=== PATIENT | female | born 1940 | race Asian ===

== ENCOUNTER → 2024-03-24 11:05 | Outpatient (REF) | payer MEDICARE, OTHER, SELFPAY ==
[2024-03-24 16:36] LABS: ALT (SGPT) 15 U/L (0-35); AST (SGOT) 26 U/L (14-36); Albumin 4.6 g/dl (3.5-5.0); Alkaline Phosphatase 68 U/L (38-126); Blood Urea Nitrogen 19 mg/dl (7-17); Calcium 9.4 mg/dl (8.4-10.2); Carbon Dioxide 27 mmol/L (22-30); Chloride 104 mmol/L (98-107); Glucose 94 mg/dl (70-99); HDL Cholesterol 103 mg/dl; LDL Cholesterol, Calculated 133 mg/dl; Potassium 4.5 mmol/L (3.5-5.1); Sodium 144 mmol/L (135-145); Total Bilirubin 0.6 mg/dl (0.2-1.3); Total Cholesterol 254 mg/dl (50-199); Total Protein 7.7 g/dl (6.3-8.2); Triglyceride 92 mg/dl (10-149); Very Low Density Lipoprotein 18 mg/dl (0-30); eGFR > 60.00
== END ==
LOC: HWLAB 11:05
PROVIDERS: ATTENDING PHYSICIAN Internal Medicine
DX: E78.5 Hyperlipidemia, unspecified (principal)
CPT/HCPCS: 36415; 80053; 80061

== ENCOUNTER → 2024-04-09 10:00 | Outpatient (REF) | payer MEDICARE, OTHER, SELFPAY | LOC: HWRAD 10:00 | PROVIDERS: ATTENDING PHYSICIAN Internal Medicine | DX: M81.0 Age-related osteoporosis without current pathological fracture (principal) | CPT/HCPCS: 77080 ==

== ENCOUNTER → 2024-06-09 07:45 | Outpatient (REF) | payer MEDICARE, OTHER, SELFPAY ==
[2024-06-09 10:12] LABS: Hematocrit 38.9 % (37.0-47.0); Hemoglobin 12.5 g/dL (12.0-16.0); Mean Corp Hgb Conc. 32.1 g/dL (33.0-37.0); Mean Corpuscular Hgb 23.9 pg (27.0-31.0); Mean Corpuscular Volume 74.5 fL (81.0-99.0); Mean Platelet Volume 10.6 fL (7.4-10.4); Platelet Count 351 10^3/uL (130-400); Red Blood Cell Count 5.22 10^6/uL (4.20-5.40); Red Cell Dist. Width 14.8 % (11.5-14.5); White Blood Cell Count 10.4 10^3/uL (4.8-10.8)
[2024-06-09 11:32] LABS: Absolute Neutrophils -Man Diff 6.7 10^3/uL (1.4-6.5); Band Neutrophils 8 % (0-3); Lymphocytes 17 % (20-51); Monocytes 11 % (2-9); Segmented Neutrophils 57 % (42-75)
[2024-06-09 11:33] LABS: Atypical Lymphocytes 5 %; Eosinophils 2 % (0-6); Normal RBC Morphology Yes; Platelets Checked Yes; Total Cells Counted 100
== END ==
LOC: HWLAB 07:45
PROVIDERS: ATTENDING PHYSICIAN Internal Medicine
DX: J18.9 Pneumonia, unspecified organism (principal)
CPT/HCPCS: 36415; 85025

== ENCOUNTER 2025-01-14 06:15 | Emergency (ER) | payer MEDICARE, OTHER, SELFPAY ==
[2025-01-14 06:27] VITALS: BP 118/65
--- NOTE | 2025-01-14 07:26 | ED.GENMED ---
History of Present Illness
<Chantel Posadas PA-C - Last Filed: 01/14/25 17:37>
General
Chief Complaint: Headache
Source: patient
Exam Limitations: none
Time Seen by Provider: 01/14/25 07:08
Nursing documentation reviewed up to this point in time: agreed with
History of Present Illness
History of Present Illness:
Patient is an 84-year-old female with history dementia who presents to the emergency department for evaluation of headache X 3 days. She describes the headache as gradual in onset however worsening over the past few days. She states the headache
is constant in nature and describes both a throbbing pain in her left posterior head as well as pain to her scalp in the similar area. She states the pain is exacerbated when she pulls her hair in the affected area.
Patient states occasionally she gets blurry vision in her left eye however right now her vision is normal.
She denies any fever, chills, neck pain. She denies any nausea, vomiting, diplopia, ataxia, dysarthria, weakness. No recent falls or trauma.
Her feels that she has been more confused/forgetful over the past few days. She has been sleeping more than she typically does.
Of note�they state that patient did have MRI imaging about 1 year ago and it is time to get into a clinical trial for dementia where she was told she has a few 'nodules 'on her brain.
Past History
<Chantel Posadas PA-C - Last Filed: 01/14/25 17:37>
Past History
ED Past Medical History: Other (mycobacterial infection) and Other (shingles)
ED Past Surgical History: Cholecystectomy and Other (lumpectomy, mycomectomy)
Social History
Tobacco: Non-smoker
Alcohol: None
Drug: None
Personal: Single
Living: alone
Review of Systems
<Chantel Posadas PA-C - Last Filed: 01/14/25 17:37>
Review of Systems
Allergies reviewed?: Yes
All Other Systems: ROS reviewed and negative except as documented in HPI and ROS
Phy Exam
<Chantel Posadas PA-C - Last Filed: 01/14/25 17:37>
Physical Exam
Physical Exam:
Vitals: Patient's vital signs are stable. Afebrile
General: Patient is well appearing, no acute distress. Nontoxic appearing
Skin: Warm and dry, no rashes or lesions
Head: Normocephalic, atraumatic. Some reproducible tenderness in left parietal scalp without any evidence of rash, ecchymoses, erythema. No temporal tenderness.
Eyes: Sclera nonicteric. Pupils equal round reactive light bilaterally. EOMs intact. No nystagmus.
Throat: Protecting airway
Neck: Palpable tender lymphadenopathy posterior cervical chain on right side. Normal ROM, no cervical spine tenderness, no meningismus
Cardiac: Regular rate and rhythm, no murmurs.
Pulm: Normal respiratory effort, no wheezes, rales, rhonchi heard on exam
Abdomen: No abdominal tenderness.
Extremities: No evidence of cyanosis or edema. Strength 5/5 in bilateral upper and lower extremities.
Neuro: AAOx3. CN II-XII grossly intact. No facial droop or asymmetry. Fluid speech and steady gait. Sensation intact. No focal neurologic deficits.
Psychiatric: Normal affect.
Course
<Chantel Posadas PA-C - Last Filed: 01/14/25 17:37>
Orders/Labs/Results
Orders:
Orders
01/14/25 07:18
CT Head W/o Iv Contrast Urgent
Comment:
Reason For Exam: left parietal headache, confusion
0.9% Sodium Chloride 500 ml [Nss] 500 ml IV BOLUS
Acetaminophen [Tylenol] 650 mg PO NOW STA
01/14/25 07:53
C-Reactive Protein Urgent
COVID-19 Antigen Urgent
Source: Nasal Swab
Complete Blood Count/With Diff Urgent
Comprehensive Metabolic Panel Urgent
ESR [Erythrocyte Sed Rate] Urgent
Monotest Urgent
Comment: ADD
01/14/25 08:37
Add On- LAB Urgent
Tests Added?: monospot
01/14/25 08:59
Ketorolac [Toradol] 15 mg IV NOW STA
01/14/25 12:51
Prednisone [Deltasone] 60 mg PO NOW STA
01/14/25 13:20
Add On- LAB Urgent
Tests Added?: CRP
Abnormal Lab Results
01/14/25
07:53
MCV 73.7 L fL
(81.0-99.0)
MCH 24.2 L pg
(27.0-31.0)
MCHC 32.8 L g/dL
(33.0-37.0)
RDW 15.4 H %
(11.5-14.5)
Lymphocytes % 18.1 L %
(20.5-51.1)
ESR 74 H mm/hour
(0-20)
BUN 26 H mg/dl
(7-17)
Glucose 119 H mg/dl
(70-99)
AST 67 H U/L
(14-36)
ALT 58 H U/L
(0-35)
C-Reactive Protein 32.00 H mg/L
(0.0-10.00)
01/14/25 07:53
01/14/25 07:53
Vital Signs
Initial and Last Documented VS:
Initial Vital Signs
Temp Pulse Resp BP Pulse Ox
97.4 F 84 16 118/65 95
01/14/25 06:27 01/14/25 06:27 01/14/25 06:27 01/14/25 06:27 01/14/25 06:27
Last Documented Vital Signs
Temp Pulse Resp BP Pulse Ox
97.4 F 84 16 121/62 94
01/14/25 06:27 01/14/25 06:27 01/14/25 06:27 01/14/25 11:00 01/14/25 12:02
<Keven Bailey Forest, DO - Last Filed: 01/14/25 12:42>
Orders/Labs/Results
Orders:
Orders
01/14/25 07:18
CT Head W/o Iv Contrast Urgent
Comment:
Reason For Exam: left parietal headache, confusion
0.9% Sodium Chloride 500 ml [Nss] 500 ml IV BOLUS
Acetaminophen [Tylenol] 650 mg PO NOW STA
01/14/25 07:53
C-Reactive Protein Urgent
COVID-19 Antigen Urgent
Source: Nasal Swab
Complete Blood Count/With Diff Urgent
Comprehensive Metabolic Panel Urgent
ESR [Erythrocyte Sed Rate] Urgent
Monotest Urgent
Comment: ADD
01/14/25 08:37
Add On- LAB Urgent
Tests Added?: monospot
01/14/25 08:59
Ketorolac [Toradol] 15 mg IV NOW STA
01/14/25 12:51
Prednisone [Deltasone] 60 mg PO NOW STA
01/14/25 13:20
Add On- LAB Urgent
Tests Added?: CRP
Abnormal Lab Results
01/14/25
07:53
MCV 73.7 L fL
(81.0-99.0)
MCH 24.2 L pg
(27.0-31.0)
MCHC 32.8 L g/dL
(33.0-37.0)
RDW 15.4 H %
(11.5-14.5)
Lymphocytes % 18.1 L %
(20.5-51.1)
ESR 74 H mm/hour
(0-20)
BUN 26 H mg/dl
(7-17)
Glucose 119 H mg/dl
(70-99)
AST 67 H U/L
(14-36)
ALT 58 H U/L
(0-35)
C-Reactive Protein 32.00 H mg/L
(0.0-10.00)
01/14/25 07:53
01/14/25 07:53
Vital Signs
Initial and Last Documented VS:
Initial Vital Signs
Temp Pulse Resp BP Pulse Ox
97.4 F 84 16 118/65 95
01/14/25 06:27 01/14/25 06:27 01/14/25 06:27 01/14/25 06:27 01/14/25 06:27
Last Documented Vital Signs
Temp Pulse Resp BP Pulse Ox
97.4 F 84 16 121/62 94
01/14/25 06:27 01/14/25 06:27 01/14/25 06:27 01/14/25 11:00 01/14/25 12:02
<Chantel Posadas PA-C - Last Filed: 01/14/25 17:37>
MDM/Problems Addressed
Differential Diagnosis Includes:
Not limited to: Viral illness, migraine headache, tension headache, occipital neuralgia, herpes zoster, giant cell arteritis, intracerebral hemorrhage, mass, etc.
MDM/Problems Addressed:
84-year-old female presenting with 3 days of left parietal lobe headache. She does report intermittent blurriness of left eye however vision clear currently. No other neurologic symptoms. No recent trauma or falls. No oral anticoagulation.
Patient hemodynamically stable on arrival. On exam�patient well-appearing, in no apparent distress. She is neurologically intact without any focal deficits. She has normal cerebellar exam and equal strength in bilateral upper/lower extremities.
She has no tenderness overlying temporal artery or jaw claudication. Cardio/pulmonary assessment unremarkable. No meningeal signs.
Differential broad. Possible viral illness versus dehydration. Lower suspicion for migraine headache given age and no history of similar. No evidence of rash to suggest zoster. Symptoms inconsistent with occipital neuralgia. Other consideration
would be giant cell arteritis.
ED plan, labs, viral studies, head CT. Will treat symptoms and reassess.
Update: CBC without clinically significant abnormalities. Chemistry reveals mild transaminitis, nonspecific. Viral studies negative. Head CT without acute findings. Inflammatory marker, ESR elevated to 74. This would raise concern for an
inflammatory process such as giant cell arteritis. However�patient has no temporal artery tenderness and no jaw claudication symptoms. Her symptoms did improve significantly following medications. Given age, elevated inflammatory marker�Case was
discussed with vascular surgery as well as rheumatology. Plan will be to initiate oral steroids and schedule prompt follow-up with rheumatology outpatient. Will add on CRP per rheumatology. Plan for possible temporal artery biopsy outpatient.y
strict return precautions discussed. Patient and patient's family comfortable with plan. Patient discharged in stable condition. Patient seen with attending physician.
Chronic conditions affecting care:
Dementia
Acute Exacerbation and/or Progression of Chronic Illness:
N/A
<Chantel Posadas PA-C - Last Filed: 01/14/25 17:37>
*Radiology
Radiology exam reviewed: radiology read reviewed
*Pulse Oximetry
SaO2: 95
Oxygen Mode of Delivery: Room air
Patient hypoxic: no
*EKG
Interpreted by ED Provider?: NA
*Food Concession Manager Interpretation
Rate: Food Concession Manager- N/A
*Critical Care Note
Total Time (30-74mins, 75-104mins- exclusive of procedures): Not Applicable
<Chantel Posadas PA-C - Last Filed: 01/14/25 17:37>
Patient Management
Discussion with other providers: Wet Mixer (Case discussed with vascular surgery and rheumatology)
ED Attending Note
<Chantel Posadas PA-C - Last Filed: 01/14/25 17:37>
-
Portions of this chart may have been created with voice recognition software.� Occasional wrong word or��sound alike� substitutions may have occurred due to the inherent limitations of voice recognition software.
<Keven Bailey [place], DO - Last Filed: 01/14/25 12:42>
ED Attending Note
Patient seen and examined by attending physician: Yes
I performed the substantive portion of visit, reviewed & personally made and approve the management plan that is documented in note by myself or MULU.: Yes
ED Attending Note:
I evaluated the patient at bedside. The patient points to pain in the posterolateral aspect of the scalp. She feels as if there is something inside. CT imaging shows no acute abnormality. The patient did have a sed rate that was elevated however
I have extremely low suspicion for giant cell arteritis given the location of the pain and absence of pain with chewing food and absence of any tenderness in the left temporal region. She was given Tylenol and Toradol and now feels significantly
improved on reassessment.
Discharge Plan
Departure
Patient Disposition: Home (Routine Discharge)
Date of Disposition: 01/14/25
Time of Disposition: 12:51
Patient with high blood pressure during this ER visit?: No
Condition: Good
Discharge Problem:
Headache
Instructions: Headache, Adult (DC)
Prescriptions:
New
prednisone 20 mg tablet
60 mg PO DAILY 14 Days Qty: 42 0RF
No Action
cyanocobalamin (vitamin B-12) 1,000 MCG tablet
1,000 mcg PO DAILY
calcium carbonate [Antacid (calcium carbonate)] 1 TABLET tablet,chewable
2 tab PO Q4HPRN PRN (Reason: acid reflux)
ibuprofen 200 MG tablet
200 mg PO Q6HPRN PRN (Reason: mild pain)
multivitamin with minerals [Hair,Skin and Nails] 1 EACH tablet
1 ea PO DAILY
B-complex with vitamin C 1 CAPLET tablet
1 cap PO DAILY
lysine HCl 500 MG tablet
500 mg PO DAILY
multivitamin with folic acid [Tab-A-Skye] 1 TABLET tablet
1 tab PO DAILY
calcium carb-mag ox-zinc sulf 1 EACH tablet
1 ea PO DAILY
azithromycin [Zithromax] 500 MG tablet
500 mg PO DAILY Qty: 5 0RF
cefpodoxime [Vantin] 100 MG tablet
100 mg PO BID Qty: 14 0RF
Referrals:
Zaira Taveras MD [Non-Admitting Privileges, Neurology] - As needed
Keyla Monroe MD [Family Provider, Internal Medicine]
Shantell Mendoza MD [Active, Rheumatology] - Next open appointment
Activity Restrictions/Additional Instructions:
RETURN TO THE EMERGENCY DEPARTMENT ANY SEVERE, INTRACTABLE HEADACHE, CHANGES IN MENTAL STATUS, VOMITING, VISUAL CHANGES, PERSISTENT DIZZINESS, NUMBNESS/TINGLING OR WEAKNESS IN EXTREMITIES, WORSENING OF CURRENT SYMPTOMS, OR ANY OTHER CONCERNS
- As discussed�one of your inflammatory markers was elevated in the emergency department. Your liver function tests were also mildly elevated.
- A prescription for oral steroids has been sent to your pharmacy. Please take this once a day until you are seen by rheumatology.
- Continue to stay well-hydrated and take Tylenol and/or Motrin as needed for pain.
- Follow-up with rheumatology for further evaluation/management. Please call their office later today to schedule an appointment. If symptoms persist/worsen�you may also need to be seen by a neurologist and have further imaging of your brain
Monitor your symptoms closely and return to the emergency department with any acute worsening/new symptoms or any other concerns
Interventions
Interventions:
*Risk Screen - Suicide Last Done: 01/14/25 06:27
*General Assessment Last Done: 01/14/25 08:02
*Neglect/Abuse Screening Last Done: 01/14/25 06:27
*ED- Fall Risk Assessment Last Done: 01/14/25 06:27
*ED COVID-19 Vaccine History Last Done: 01/14/25 06:27
*Nursing Disposition Last Done: 01/14/25 13:05
ED- Neurological Assessment Last Done: 01/14/25 08:02
Discharge Date and Time
Discharge Date/Time: 01/14/25 13:05
Print Language: INDONESIAN
[2025-01-14] MEDS: TYLENOL 650 MG PO (07:41)
[2025-01-14] MEDS: NSS 500 IV (07:53)
[2025-01-14 07:56] VITALS: BP 133/69
[2025-01-14 08:00] VITALS: BP 97/66
[2025-01-14 08:09] LABS: Hematocrit 37.8 % (37.0-47.0); Hemoglobin 12.4 g/dL (12.0-16.0); Mean Corp Hgb Conc. 32.8 g/dL (33.0-37.0); Mean Corpuscular Volume 73.7 fL (81.0-99.0); Nucleated Red Blood Cells % 0 %; Platelet Count 260 10^3/uL (130-400); Red Cell Dist. Width 15.4 % (11.5-14.5)
[2025-01-14 08:19] LABS: COVID-19 Antigen Negative (Negative)
[2025-01-14 08:33] LABS: ALT (SGPT) 58 U/L (0-35); AST (SGOT) 67 U/L (14-36); Albumin 4.2 g/dl (3.5-5.0); Alkaline Phosphatase 125 U/L (38-126); Blood Urea Nitrogen 26 mg/dl (7-17); Calcium 8.9 mg/dl (8.4-10.2); Carbon Dioxide 26 mmol/L (22-30); Chloride 106 mmol/L (98-107); Glucose 119 mg/dl (70-99); Potassium 4.5 mmol/L (3.5-5.1); Sodium 139 mmol/L (135-145); Total Protein 7.5 g/dl (6.3-8.2); eGFR > 60.00
[2025-01-14] MEDS: TORADOL 15 MG IV (09:15)
[2025-01-14 09:17] VITALS: BP 132/37
[2025-01-14 10:00] VITALS: BP 123/58
[2025-01-14 11:00] VITALS: BP 121/62
[2025-01-14] MEDS: DELTASONE 60 MG PO (13:03)
[2025-01-14 14:49] LABS: C-Reactive Protein 32.00 mg/L (0.0-10.00)
== END 2025-01-14 13:05 | disposition home or self-care (01) ==
LOC: EMR 06:15
PROVIDERS: Physician Assistant; EMERGENCY PHYSICIAN Emergency Medicine; FAMILY PHYSICIAN Internal Medicine
DX: R51.9 Headache, unspecified (principal); F03.90 Unspecified dementia, unspecified severity, without behavioral disturbance, psychotic disturbance, mood disturbance, and anxiety; Z90.49 Acquired absence of other specified parts of digestive tract
CPT/HCPCS: 99284; 96374; 96361; 70450; 80053; 85025; 85652; 86140; 86308; 87811

== ENCOUNTER → 2025-01-14 13:17 | Outpatient (REF) | payer MEDICARE, OTHER, SELFPAY ==
[2025-01-14 14:06] LABS: Hematocrit 37.1 % (37.0-47.0); Hemoglobin 12.2 g/dL (12.0-16.0); Mean Corp Hgb Conc. 32.9 g/dL (33.0-37.0); Mean Corpuscular Volume 73.6 fL (81.0-99.0); Nucleated Red Blood Cells % 0 %; Platelet Count 256 10^3/uL (130-400); Red Cell Dist. Width 15.5 % (11.5-14.5)
[2025-01-14 14:18] LABS: INR 1.04; PT 13.9 Sec (11.4-14.6)
[2025-01-14 14:42] LABS: ALT (SGPT) 56 U/L (0-35); AST (SGOT) 63 U/L (14-36); Albumin 3.8 g/dl (3.5-5.0); Alkaline Phosphatase 131 U/L (38-126); Blood Urea Nitrogen 20 mg/dl (7-17); Calcium 8.4 mg/dl (8.4-10.2); Carbon Dioxide 25 mmol/L (22-30); Chloride 108 mmol/L (98-107); Glucose 96 mg/dl (70-99); HDL Cholesterol 57 mg/dl; LDL Cholesterol, Calculated 109 mg/dl; Potassium 4.3 mmol/L (3.5-5.1); Sodium 139 mmol/L (135-145); Total Protein 6.8 g/dl (6.3-8.2); Very Low Density Lipoprotein 19 mg/dl (0-30); eGFR > 60.00
[2025-01-14 15:46] LABS: Folate 19.9 ng/ml (2.76-20); Vitamin B12 575 pg/ml (239-931)
== END ==
LOC: REG 13:17
PROVIDERS: ATTENDING PHYSICIAN Psychiatry & Neurology Neurology; FAMILY PHYSICIAN Internal Medicine
DX: G31.84 Mild cognitive impairment of uncertain or unknown etiology (principal); G30.9 Alzheimer's disease, unspecified; F02.80 Dementia in other diseases classified elsewhere, unspecified severity, without behavioral disturbance, psychotic disturbance, mood disturbance, and anxiety; I67.89 Other cerebrovascular disease
CPT/HCPCS: 36415; 80053; 80061; 82607; 82746; 84443; 85025; 85610

== ENCOUNTER 2025-01-21 07:20 | Day surgery (SDC) | payer MEDICARE, OTHER, SELFPAY ==
[2025-01-21] MEDS: BACTROBAN NASAL 1 GRAM NASAL (08:16)
[2025-01-21] MEDS: NSS 500 IV (08:16)
[2025-01-21] MEDS: PERIDEX 0.12% ORAL RINSE 15 ML PO (08:16)
[2025-01-21 08:26] LABS: Hematocrit 36.5 % (37.0-47.0); Hemoglobin 11.9 g/dL (12.0-16.0); Mean Corp Hgb Conc. 32.6 g/dL (33.0-37.0); Mean Corpuscular Volume 74.0 fL (81.0-99.0); Platelet Count 327 10^3/uL (130-400); Red Cell Dist. Width 15.9 % (11.5-14.5)
[2025-01-21 08:31] VITALS: BMI 24.2
[2025-01-21 08:39] LABS: Blood Urea Nitrogen 16 mg/dl (7-17); Calcium 8.6 mg/dl (8.4-10.2); Carbon Dioxide 31 mmol/L (22-30); Chloride 107 mmol/L (98-107); Estimated Creatinine Clearance 42 ml/min; Glucose 87 mg/dl (70-99); Potassium 4.3 mmol/L (3.5-5.1); Sodium 142 mmol/L (135-145); eGFR > 60.00
[2025-01-21 08:41] VITALS: BP 152/76
[2025-01-21 08:54] LABS: INR 1.02; PT 13.9 Sec (11.4-14.6)
[2025-01-21 08:55] LABS: APTT 27.7 Sec (23.4-35.0)
--- NOTE | 2025-01-21 10:21 | W.SUR.PREOP ---
Addendum entered and electronically signed by Hilario Maciel MD 01/21/25 10:46:
Note I was called back to the preoperative area. Patient is requesting to have only the left side done. I had discussed with her the enhanced yield in performing bilateral temporal artery biopsies. Discussed that generally the weld lay out worker
favor us to do both sides. However patient understands this but she notes that she has only had symptoms on the left side and does not wish to have the right side done at this time. She understands potentially worsened yield in that setting. Will
proceed with only left temporal artery biopsy. Consent has been addended.
Original Note:
Pre-Operative Surgical Note
-
I have examined this patient prior to the performance of the scheduled procedure.
The patient's condition is unchanged from the time of the current History and
Physical and the patient is able to undergo the scheduled procedure.
Discussed/clarified my role and diagnosing temporal arteritis (temporal artery biopsy). Discussed that I defer to the weld lay out worker/primary care teams/pathology regarding suspicion/diagnosis/management. Discussed procedural anticipated
outcome/recovery. Discussed risks including but not limited to bleeding/infection/nerve injury. She understands all wishes to proceed.
[2025-01-21 11:30] VITALS: BP 144/75; BP 152/76
--- NOTE | 2025-01-21 11:30 | W.SUR.POST ---
Surgical Immediate Post Op
Note
Pre Op Diagnosis: Headache
Post Op Diagnosis: Same
Procedure Performed: Left temporal artery biopsy
Primary Surgeon: Raheem
Colloid Mill Operator: Sharee FAJARDO
Anesthesia: Local and sedation
Estimated Blood Loss: 2 cc
Fluids: See anesthesia flowsheet
Drains/Shunts: None
Specimens/Cultures: Left temporal artery
Doppler/Duplex/Angio (Y/N): Y
Complications: None
Operative Findings: Successful left upper artery biopsy
--- NOTE | 2025-01-21 11:43 | OR.RPT ---
Operative Report
Operative Report
PROCEDURE DATE: 01/21/2025
Preoperative diagnosis: Temporal arteritis
Postoperative diagnosis: Same
Procedure: Left temporal artery biopsy
Surgeon: Raheem
Parts Room Assistant: Sharee, required for all aspects of procedure including assistance with traction/countertraction, assistance with closure.
Complications: None
Anesthesia: Local, sedation
Indications for procedure:
Concern for temporal arteritis. We had initially recommended bilateral temporal artery biopsy. However patient decided to only have the left side performed. She understood potential for less efficient yield. Her symptoms had only been on the
left side therefore she only wanted to have the left side done. Risk/benefits/alternatives also discussed. She understood all wished to proceed.
Description of procedure:
Patient was identified brought to the operating room placed on the table in supine position. After the adequate administration of anesthesia and perioperative antibiotics she was prepped and draped in the standard surgical fashion. A standard
preoperative timeout was undertaken and everybody was in agreement the plan. A longitudinal incision was made in the left scalp just anterior and superior to the superiormost aspect of the pinna of the right ear (overlying the palpable pulsation of
the artery) after infiltration of the skin and subcutaneous tissue with 1% lidocaine. This was carried down through the subcutaneous layer and the fascia layer with electrocautery. The superficial temporal artery was identified. It was mobilized
using sharp dissection. It was then ligated proximally and distally as well as a branch ligated all with silk ties and a clip. I then transected the artery. This was then sent for specimen. Of note the artery was noted to be tortuous, dilated in
the midportion, and appeared to have thickened ching.
The incision site was then irrigated. Hemostasis was achieved and confirmed. We then closed in layers using 3-0 Vicryl deep dermal layer followed by 4-0 Monocryl subcuticular running layer. Dermabond was then applied. Patient tolerated procedure
well.
[2025-01-21 11:45] VITALS: BP 150/76
[2025-01-21 11:57] VITALS: BP 151/70
[2025-01-21 12:03] VITALS: BP 149/78
[2025-01-21 12:17] VITALS: BP 144/85
== END 2025-01-21 12:30 | disposition home or self-care (01) ==
LOC: CATH 07:20
PROVIDERS: ATTENDING PHYSICIAN Surgery Vascular Surgery; FAMILY PHYSICIAN Internal Medicine
DX: M31.6 Other giant cell arteritis (principal)
CPT/HCPCS: 37609; 80048; 85027; 85610; 85730; 86850; 86900; 86901; 88305; 88313; 93005

== ENCOUNTER 2025-02-27 11:48 | Emergency (ER) | payer MEDICARE, OTHER, SELFPAY ==
[2025-02-27 11:50] VITALS: BP 120/75
--- NOTE | 2025-02-27 12:29 | ED.GENMED ---
History of Present Illness
<Kelsey Hong PA-C - Last Filed: 02/27/25 17:07>
General
Chief Complaint: Facial Problem
Source: patient and family
Exam Limitations: none
Time Seen by Provider: 02/27/25 11:56
Nursing documentation reviewed up to this point in time: agreed with
History of Present Illness
History of Present Illness:
84 y/o F with DERRICK history, bronchiectasis
dementia
here with
says that she has woke up complaining of bodyaches for 3 days but no real complaints until this morning when she said it hurt in her R jaw to open and to chew on that side
she has not had cough, fever.
thought her face looked swollen on R side as well
pt has been on steroids (was on 60 mg now on 30 mg) daily for giant cell arteritis
she has a mild headache today 08/24
no vision changes
she mostly complains of R jaw pain with chewing and pain opening mouth
pt did not appreciate facial redness
no trouble swallowing
no sublingual swelling
Past History
<Kelsey Hong PA-C - Last Filed: 02/27/25 17:07>
Past History
ED Past Medical History: Other (mycobacterial infection) and Other (shingles)
ED Past Surgical History: Cholecystectomy and Other (lumpectomy, mycomectomy)
Social History
Tobacco: Non-smoker
Alcohol: None
Drug: None
Personal: Single
Living: alone
Review of Systems
<LEE ANN Woody Last Filed: 02/27/25 17:07>
Review of Systems
Allergies reviewed?: Yes
All Other Systems: Not applicable
Phy Exam
<Kelsey Hong PA-C - Last Filed: 02/27/25 17:07>
Physical Exam
Physical Exam:
GENERAL: Alert , in no apparent distress
face: slightly nelson facies
EYE: pupils equal and reactive
NECK: Supple, no appreciated AVINASH
no swelling
ENT: o/p clr, mmm.
no periapoical swelling or detnal fractures
pt has mild pain with jaw opening R side, 2 finger breadths trismus but no parotid swelling
no submandibular swelling
mild mandibular tenderness
maybe POSSIBLE R facial/cheek thickening/induration
some redness throughout her face and neck (? steroids)
CARDIAC: Regular rate and rhythm .
LUNGS: Clear breath sounds bilaterally, no acute respiratory distress, no wheezes/rales/rhonchi
ABDOMEN: Soft, without focal tenderness, no r/g, no cvat, normal bowel sounds
NEUROLOGICAL: Alert and oriented, no focal neuro deficits, mild dementia but no neuro deficits
SKIN: Warm and dry, skin intact.
MUSCULOSKELETAL: No edema, well perfused. neg valorie's sign
PSYCH: Normal and appropriate interaction.
Course
<Kelsey Hong PA-C - Last Filed: 02/27/25 17:07>
Orders/Labs/Results
Orders:
Orders
02/27/25 12:23
CT Neck With Iv Contrast Urgent
Comment: please scan through cheek /jaw down
Reason For Exam: right mandible/jaw pain/cheek pain/swelling
02/27/25 12:28
Ketorolac [Toradol] 15 mg IV NOW STA
02/27/25 12:40
COVID-19 Antigen Urgent
Source: Nasal Swab
Complete Blood Count/With Diff Urgent
Comprehensive Metabolic Panel Urgent
Erythrocyte Sed Rate Urgent
PTT Urgent
Prothrombin Time Urgent
02/27/25 14:27
Amoxicillin 875 mg/Clav 125 mg [Augmentin 875 mg/125 mg] 1 tablet PO NOW STA
Abnormal Lab Results
02/27/25
12:40
WBC 12.6 H 10^3/uL
(4.8-10.8)
MCV 74.0 L fL
(81.0-99.0)
MCH 24.5 L pg
(27.0-31.0)
RDW 16.0 H %
(11.5-14.5)
Abs Immat Gran (auto) 0.2 H 10^3/uL
(0-0.05)
Absolute Neuts (auto) 9.4 H 10^3/uL
(1.4-6.5)
Absolute Monos (auto) 0.7 H 10^3/uL
(0.1-0.6)
Immature Gran % 1.7 H %
(0-0.5)
Lymphocytes % 15.8 L %
(20.5-51.1)
ESR 48 H mm/hour
(0-20)
Sodium 130 L mmol/L
(135-145)
BUN 21 H mg/dl
(7-17)
Glucose 123 H mg/dl
(70-99)
Calcium 8.3 L mg/dl
(8.4-10.2)
02/27/25 12:40
02/27/25 12:40
Vital Signs
Initial and Last Documented VS:
Initial Vital Signs
Temp Pulse Resp BP Pulse Ox
36.9 C 98 22 120/75 95
02/27/25 11:50 02/27/25 11:50 02/27/25 11:50 02/27/25 11:50 02/27/25 11:50
Last Documented Vital Signs
Temp Pulse Resp BP Pulse Ox
36.9 C 69 20 125/68 95
02/27/25 11:50 02/27/25 14:57 02/27/25 14:57 02/27/25 14:57 02/27/25 14:57
<Keven [place], DO - Last Filed: 02/27/25 12:30>
Orders/Labs/Results
Orders:
Orders
02/27/25 12:23
CT Neck With Iv Contrast Urgent
Comment: please scan through cheek /jaw down
Reason For Exam: right mandible/jaw pain/cheek pain/swelling
02/27/25 12:28
Ketorolac [Toradol] 15 mg IV NOW STA
02/27/25 12:40
COVID-19 Antigen Urgent
Source: Nasal Swab
Complete Blood Count/With Diff Urgent
Comprehensive Metabolic Panel Urgent
Erythrocyte Sed Rate Urgent
PTT Urgent
Prothrombin Time Urgent
02/27/25 14:27
Amoxicillin 875 mg/Clav 125 mg [Augmentin 875 mg/125 mg] 1 tablet PO NOW STA
Abnormal Lab Results
02/27/25
12:40
WBC 12.6 H 10^3/uL
(4.8-10.8)
MCV 74.0 L fL
(81.0-99.0)
MCH 24.5 L pg
(27.0-31.0)
RDW 16.0 H %
(11.5-14.5)
Abs Immat Gran (auto) 0.2 H 10^3/uL
(0-0.05)
Absolute Neuts (auto) 9.4 H 10^3/uL
(1.4-6.5)
Absolute Monos (auto) 0.7 H 10^3/uL
(0.1-0.6)
Immature Gran % 1.7 H %
(0-0.5)
Lymphocytes % 15.8 L %
(20.5-51.1)
ESR 48 H mm/hour
(0-20)
Sodium 130 L mmol/L
(135-145)
BUN 21 H mg/dl
(7-17)
Glucose 123 H mg/dl
(70-99)
Calcium 8.3 L mg/dl
(8.4-10.2)
02/27/25 12:40
02/27/25 12:40
Vital Signs
Initial and Last Documented VS:
Initial Vital Signs
Temp Pulse Resp BP Pulse Ox
36.9 C 98 22 120/75 95
02/27/25 11:50 02/27/25 11:50 02/27/25 11:50 02/27/25 11:50 02/27/25 11:50
Last Documented Vital Signs
Temp Pulse Resp BP Pulse Ox
36.9 C 69 20 125/68 95
02/27/25 11:50 02/27/25 14:57 02/27/25 14:57 02/27/25 14:57 02/27/25 14:57
<Kelsey Hong PA-C - Last Filed: 02/27/25 17:07>
MDM/Problems Addressed
Differential Diagnosis Includes:
dental abscess, parotidis, cellulitis (erisepylas), cushings syndrome/faces, less likely SVC syndrome
MDM/Problems Addressed:
84 y/o F
mild dementia
able to answer some questions reliably
assists but both are not entirely strong historians
on steroids for GCA
here with R facial pain (jaw pain) and facial swelling today
she has had some bodyaches the past 3 days without fever or other sypmtoms
just had temporal artery bx 1 mo ago showing signs c/w healing arteritis
on steroids but lower dose now than previous
pt had eval by dentist not too long ago
on exam she has lsightly nelson faces and some very mild erythema but doesn't seem to be limtied to just her R cheek but her whole face, like she applied blush or got sunburned mildly ; she doesn't recall putting make up on
her R cheek is slightly thickened but no definifive abscess
there is a little periorbital edema
her BP is normal
she has no other cushings findings but she is on steorids
pt has pain with jaw opening but no obvious dental abscess
no masses sublingually
seen by ed attneding
screening labs, ct neck
shows mild TMJ disease but no other findings
will cover with augmentin for possible dentla cauess vs erisepylas.
return precautions given
appreciate mild leukocytoiss with left shift
<Kelsey Hong PA-C - Last Filed: 02/27/25 17:07>
*Pulse Oximetry
SaO2: 95
Oxygen Mode of Delivery: Room air
Patient hypoxic: no (95)
*Critical Care Note
Total Time (30-74mins, 75-104mins- exclusive of procedures): Not Applicable
ED Attending Note
<Kelsey Hong PA-C - Last Filed: 02/27/25 17:07>
-
Portions of this chart may have been created with voice recognition software.� Occasional wrong word or��sound alike� substitutions may have occurred due to the inherent limitations of voice recognition software.
<Keven Garg DO - Last Filed: 02/27/25 12:30>
ED Attending Note
Patient seen and examined by attending physician: Yes
I performed the substantive portion of visit, reviewed & personally made and approve the management plan that is documented in note by myself or MULU.: Yes
ED Attending Note:
I evaluated the patient at bedside. Some cognitive deficits are noted. She does have some subtle indurated tissue and notes some swelling to the right side of the face. There is no dental tenderness to palpation. There is no palpable
abscess. She has been on steroids. Will check labs and also CT imaging with contrast to further evaluate her symptoms.
Discharge Plan
Departure
Patient Disposition: Home (Routine Discharge)
Date of Disposition: 02/27/25
Time of Disposition: 14:33
Patient with high blood pressure during this ER visit?: No
Condition: Fair
Covid-19: Not Applicable
Discharge Problem:
Cellulitis of face, TMJ (temporomandibular joint syndrome)
Instructions: Cellulitis (Skin Infection), Adult (DC)
Prescriptions:
New
amoxicillin-pot clavulanate 875-125 mg tablet
1 tab PO BID Qty: 20 0RF
No Action
calcium carbonate [Antacid (calcium carbonate)] 1 TABLET tablet,chewable
2 tab PO Q4HPRN PRN (Reason: acid reflux)
ibuprofen 200 MG tablet
200 mg PO Q6HPRN PRN (Reason: mild pain)
multivitamin with folic acid [Tab-A-Skye] 1 TABLET tablet
1 tab PO DAILY
calcium carb-mag ox-zinc sulf 1 EACH tablet
1 ea PO DAILY
prednisone 20 mg tablet
60 mg PO DAILY 14 Days Qty: 42 0RF
escitalopram oxalate 5 mg Tablet
10 mg PO HS
Prolia 60 mg/mL Syringe
60 mg SC [id number]
omeprazole 10 mg Capsule,Delayed Release(Dr/Ec)
10 mg PO HS
Referrals:
Keyla Monroe MD [Family Provider, Internal Medicine]
Activity Restrictions/Additional Instructions:
Were not really sure the cause of your facial swelling and pain in your jaw, the CAT scan did not show any obvious source but were treating you with an antibiotic that should cover skin bacteria as well as dental causes. Apply warm compresses
off-and-on to your face and watch the swelling. Sleep with an extra pillow behind your head so that you can hopefully avoid the swelling worsening in your eye overnight. Should you get a fever, worsening pain or swelling or redness of your face or
eye, inability to open your eye, inability to swallow or any swelling that extends into your neck you need to return to the emergency department immediately.
Otherwise Augmentin twice a day for 10 days
\\Make sure to take a probiotic while you are on the
Interventions
Interventions:
*Risk Screen - Suicide Last Done: 02/27/25 11:50
*General Assessment Last Done: 02/27/25 11:50
*Neglect/Abuse Screening Last Done: 02/27/25 11:50
*Nursing Disposition Last Done: 02/27/25 14:57
ED- Neurological Assessment Last Done: 02/27/25 12:30
ED-Skin Assessment Last Done: 02/27/25 12:30
Discharge Date and Time
Discharge Date/Time: 02/27/25 14:58
Print Language: CHINESE
[2025-02-27 12:40] VITALS: BP 113/70
[2025-02-27] MEDS: TORADOL 15 MG IV (12:42)
[2025-02-27 12:55] LABS: Hematocrit 38.1 % (37.0-47.0); Hemoglobin 12.6 g/dL (12.0-16.0); Mean Corp Hgb Conc. 33.1 g/dL (33.0-37.0); Mean Corpuscular Volume 74.0 fL (81.0-99.0); Nucleated Red Blood Cells % 0 %; Platelet Count 311 10^3/uL (130-400); Red Cell Dist. Width 16.0 % (11.5-14.5)
[2025-02-27 13:00] VITALS: BP 103/68
[2025-02-27 13:05] LABS: INR 1.11; PT 14.6 Sec (11.4-14.6)
[2025-02-27 13:06] LABS: APTT 30.9 Sec (23.4-35.0)
[2025-02-27 13:10] LABS: ALT (SGPT) 19 U/L (0-35); AST (SGOT) 18 U/L (14-36); Albumin 3.6 g/dl (3.5-5.0); Alkaline Phosphatase 63 U/L (38-126); Blood Urea Nitrogen 21 mg/dl (7-17); COVID-19 Antigen Negative (Negative); Calcium 8.3 mg/dl (8.4-10.2); Carbon Dioxide 26 mmol/L (22-30); Chloride 100 mmol/L (98-107); Glucose 123 mg/dl (70-99); Potassium 4.2 mmol/L (3.5-5.1); Sodium 130 mmol/L (135-145); Total Protein 6.4 g/dl (6.3-8.2); eGFR 55.90
[2025-02-27] MEDS: AUGMENTIN 875 MG/125 MG 1 TABLET PO (14:41)
[2025-02-27 14:57] VITALS: BP 125/68
== END 2025-02-27 14:58 | disposition home or self-care (01) ==
LOC: EMR 11:48
PROVIDERS: Physician Assistant; EMERGENCY PHYSICIAN Emergency Medicine; FAMILY PHYSICIAN Internal Medicine
DX: L03.211 Cellulitis of face (principal); M26.601 Right temporomandibular joint disorder, unspecified; F03.A0 Unspecified dementia, mild, without behavioral disturbance, psychotic disturbance, mood disturbance, and anxiety; M31.6 Other giant cell arteritis
CPT/HCPCS: 99284; 96374; 70491; 80053; 85025; 85610; 85652; 85730; 87811; Q9967